=== PATIENT | female | born 1990 | race Caucasian/White ===

== ENCOUNTER 2016-05-23 20:31 | Emergency (ER) | payer OTHER ==
[2016-05-23 20:42] VITALS: BP 141/60; PULSE 80; RESP 20; TEMP 97.3
[2016-05-23] MEDS ORDERED: DIPH,PERTUS(ACELL)TETVAC-LF 0.5 ML VIAL IM ONE (20:48)
--- NOTE | 2016-05-23 20:51 | ED ---
General Adult HPI - General Chief complaint: Wound/Laceration Stated complaint: thumb lac-[facility] Time Seen by Provider: 05/23/16 20:42 Source: patient, RN notes reviewed Mode of arrival: ambulatory Limitations: no limitations - History of Present Illness Initial comments: This is a 25 year old female presents laceration to the left thumb that happened around noon today. 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 Patient is unsure when her last tetanus was. Patient denies any recent fever, chills, shortness breath, chest pain, abdominal pain, nausea/vomiting/diarrhea, back pain, numbness, tingling, hematuria, headache, or visual changes, or any other complaints. - Related Data Previous Rx's Medication Instructions Recorded Cephalexin [Keflex] 500 mg PO Q12HR 5 Days 05/23/16 Allergies Allergy/AdvReac Type Severity Reaction Status Date / Time No Known Allergies Allergy Verified 05/23/16 20:42 Review of Systems ROS Statement: Those systems with pertinent positive or pertinent negative responses have been documented in the HPI. ROS Other: All systems not noted in ROS Statement are negative. Past Medical History Additional Past Medical History / Comment(s): narcolepsy, pcos History of Any Multi-Drug Resistant Organisms: None Reported Past Surgical History: Section, Orthopedic Surgery Past Psychological History: No Psychological Hx Reported Smoking Status: Current every day smoker Past Alcohol Use History: Rare Past Drug Use History: None Reported General Exam - General Exam Comments Initial Comments: General: The patient is awake and alert, in no distress, and does not appear acutely ill. Neck: The neck is supple, there is no tenderness or JVD. Cardiovascular: There is a regular rate and rhythm. No murmur, rub or gallop is appreciated. Respiratory: Lungs are clear to auscultation, respirations are non-labored, breath sounds are equal. No wheezes, stridor, rales, or rhonchi. Musculoskeletal: Full range of motion, strength 5/5 and Sensation intact. Radial pulses 2+ bilaterally. Capillary refill is normal at less than 2 seconds. Neurological: A&O x 3. CN II-XII intact, There are no obvious motor or sensory deficits. Coordination appears grossly intact. Speech is normal. Skin: There is an approximately 0.5cm superficial laceration to the distal left thumb. Skin is warm and dry and no rashes or lesions are noted. Psychiatric: Normal mood and affect. Limitations: no limitations Course Vital Signs 05/23/16 20:40 Temperature 97.3 F L Pulse Rate 80 Respiratory 20 Rate Blood Pressure 141/60 O2 Sat by Pulse 100 Oximetry Medical Decision Making - Medical Decision Making This is a 25-year-old female presents with a superficial laceration to the left thumb that happened around noon. On physical exam There is an approximately 0.5cm superficial laceration to the distal left thumb. I cleansed the wound with normal saline. No foreign bodies noted in the wound. Steri-Strips were applied to the wound and wound was covered. Patient was given a tetanus shot in the EC today. I discussed Neosporin and keep the area clean and dry. Patient will be put on a short course of Keflex. I discussed return parameters and signs of infection.Discussed that patient should follow up with PCP in one to 2 days or return to the [facility] for any worsening symptoms or for any further concerns. Patient was receptive to this plan and patient will be discharged home. Disposition Clinical Impression: Superficial laceration of hand Disposition: HOME SELF-CARE Condition: Good Instructions: Laceration (ED) Additional Instructions: Keep the area clean and dry. May apply topical Neosporin to the area. Please keep the wound covered at work. Please follow-up with family doctor in the next 2 days of symptoms have not improved. Please return to emergency room if the symptoms increase or worsen or for any other concerns. Prescriptions: Cephalexin [Keflex] 500 mg PO Q12HR 5 Days Referrals: Meredith Barnhart MD [Primary Care Provider] - 1-2 days Time of Disposition: 21:08
== END 2016-05-23 21:30 | disposition home or self-care (01) ==
LOC: EC 20:31
DX: S61.012A Laceration without foreign body of left thumb without damage to nail, initial encounter (principal); W26.0XXA Contact with knife, initial encounter; Y93.G1 Activity, food preparation and clean up; Y92.511 Restaurant or cafe as the place of occurrence of the external cause; Y99.0 Civilian activity done for income or pay; Z23 Encounter for immunization
CPT/HCPCS: 90471; 90715; 99282

== ENCOUNTER → 2022-11-27 | Outpatient (CLI) | payer BC ==
[2022-11-27 14:13] VITALS: BP 122/87; PULSE 83; RESP 16; TEMP 98.4
--- NOTE | 2022-11-28 07:56 | P.PAINPG ---
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 Pt states pain level is provoked at 8/10 in intensity, constant, localized in the base of the head, achy in character w shooting pain towards top of the scalp. Pain is provoked by forward flexion. Pain is alleviated by PT x 8 wks in Jun 2022, massage therapy by her a licensed therapist, chiropractic treatments weekly x 2 yrs which she is currently in, heat, ice, meds (Baclofen, Advil, Tyl, Excedrin Migraine), topical, repositioning and rest. Oswestry axial pain score at 14. PMH: OA, Narcolepsy, PCOS PSH: Section, Orthopedic Surgery SH: Daily tobacco use, Rare ETOH use, No illicit drug use FH: Non contributory All: See list Meds: See list REVIEW OF ORGAN SYSTEMS: CONSTITUTIONAL: No fevers or chills. No recent weight loss. NEUROLOGICAL: + numbness and tingling along the distal extremities. No seizure disorders or headaches. MUSCULOSKELETAL: + pain PSYCHIATRIC: Denies current depression or suicidal thoughts. Physical Examinations : Constitutional : Cooperative , not in acute distress . Neurologic : Cranial nerve II to XII intact. No focal neurological deficits. Psychiatric : alert & oriented x 3. Matching mood & appropriate affect. Judgment & insight intact. Musculoskeletal : Cervical Spine BL JOSE G TTP Motor strength in the deltoid and biceps: Normal right side. Normal Left side Motor strength biceps and the wrist extensors: Normal right side . Normal left side Motor strength in the triceps muscle: Normal right side. Normal left side Deep tendon reflexes: Normal at the biceps. Normal at Brachioradialis. Normal at triceps Vertebral body tenderness to deep palpation over Cervical facet loading test: positive bilaterally Spurling test: positive bilaterally Neck distraction test: positive bilaterally Gene sign: positive bilaterally Lumbar spine Motor strength lower extremities ,thigh and legs 5/5 Right side , 5/5 Left side Deep tendon reflexes : Normal Knee Jerk. Normal Ankle Jerk Vertebral body tenderness over Darling Test positive Lumbar facet Loading Test: positive Right / positive Left Range of motion of the lumbar spine Flexion 30 degrees, extension 10 degrees Straight Leg Raise test: Left/ Right positive at degree Damon test: positive right / positive left. Severe tenderness over the Sacroiliac joint on the Right / Left sides Gaenslen test: positive bilaterally Seated flexion test: positive bilaterally. Sacral spine : Severe tenderness over the Sacroiliac joint: right side / left side Range of motion: Flexion of the lumbar spine <60 degrees Range of motion: Extension of the lumbar spine <20 degrees Gaenslen's Test positive Joel's Test positive Damon test: positive right side / left side Thigh Thrust Test Sacral Thrust Test Imaging: MRI noncontrast of the cervical spine from 10/18/22 reviewed Assessment/ Plan : Occipital Neuralgia, Cervicogenic GREENE Recommendation of BL JOSE G injections. May need a series for optimal pain relief. Risks, benefits of procedure discussed and patient verbalized understanding. Admits to aspirin or anti- coagulant use or medical history of diabetes. Protocol for discontinuation/ continuation of medications dima procedure discussed. Minimal anesthesia provided, if clinically indicated, consisting of Versed and Fentanyl. All questions answered. I have spent greater than 30 minutes on patient care today. Dr Alvarez was available by phone for the evaluation of this patient. The time was used to review the medical records including relevant urine studies and Prescription history (MAPs), review of the available imaging, evaluation and examination of the patient, coordination of care with the medical staff and if applicable referring physicians, as well as creation of the medical record PQRS Narrative: Smoking Status Current every day smoker Home Medications: Ambulatory Orders Cephalexin [Keflex] 500 mg PO Q12HR 5 Days cap 05/23/16 Controlled Substance Measures - Controlled Substance Measures Is patient prescribed a controlled substance at discharge?: No
== END ==
LOC: PNWHC3 13:29
PROVIDERS: ATTEND Specialist
DX: G43.109 Migraine with aura, not intractable, without status migrainosus (principal); M54.81 Occipital neuralgia; M19.90 Unspecified osteoarthritis, unspecified site; G47.419 Narcolepsy without cataplexy; F17.200 Nicotine dependence, unspecified, uncomplicated
CPT/HCPCS: 99211

== ENCOUNTER → 2023-01-17 | Outpatient (CLI) | payer BC ==
--- NOTE | 2023-02-03 11:27 | EM ---
EVENT MONITOR The patient was monitored between January 17, 2023 and January 30, 2023. The rhythm strip revealed a sinus mechanism. Episode of sinus tachycardia was noted. No atrial fibrillation was noted. No pauses were noted. No diary was available. MMODL / IJN: [id number] /
== END | disposition home or self-care (01) ==
LOC: RADECHMAIN 07:47
PROVIDERS: ATTEND Family Medicine
DX: R00.0 Tachycardia, unspecified (principal); R00.2 Palpitations
CPT/HCPCS: 93270

== ENCOUNTER → 2023-01-20 | Outpatient (CLI) | payer BC ==
--- NOTE | 2023-01-20 14:36 | P.PAINPG ---
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 Pt states she experienced 90% pain relief x 3 wks s/p procedure. Pt states pain level is provoked at 6/10 in intensity, constant, localized in the R base of the head, achy in character w shooting pain towards top of the R scalp. Pain is provoked by forward flexion. Pain is alleviated by PT x 8 wks in Jun 2022, massage therapy by her a licensed therapist, chiropractic treatments weekly x 2 yrs which she is currently in, heat, ice, meds, topical, repositioning and rest. Oswestry axial pain score at 22. Interventional procedures include BL JOSE G injections x1 Medications include Baclofen, Advil, Tyl, Excedrin Migraine REVIEW OF ORGAN SYSTEMS: CONSTITUTIONAL: No fevers or chills. No recent weight loss. NEUROLOGICAL: + numbness and tingling along the distal extremities. No seizure disorders or headaches. MUSCULOSKELETAL: + pain PSYCHIATRIC: Denies current depression or suicidal thoughts. Physical Examinations : Constitutional : Cooperative , not in acute distress . Neurologic : Cranial nerve II to XII intact. No focal neur ological deficits. Psychiatric : alert & oriented x 3. Matching mood & appropriate affect. Judgment & insight intact. Musculoskeletal : Cervical Spine R JOSE G TTP Motor strength in the deltoid and biceps: Normal right side. Normal Left side Motor strength biceps and the wrist extensors: Normal right side . Normal left side Motor strength in the triceps muscle: Normal right side. Normal left side Deep tendon reflexes: Normal at the biceps. Normal at Brachioradialis. Normal at triceps Vertebral body tenderness to deep palpation over Cervical facet loading test: positive bilaterally Spurling test: positive bilaterally Neck distraction test: positive bilaterally Gene sign: positive bilaterally Lumbar spine Motor strength lower extremities ,thigh and legs 5/5 Right side , 5/5 Left side Deep tendon reflexes : Normal Knee Jerk. Normal Ankle Jerk Vertebral body tenderness over Darling Test positive Lumbar facet Loading Test: positive Right / positive Left Range of motion of the lumbar spine Flexion 30 degrees, extension 10 degrees Straight Leg Raise test: Left/ Right positive at degree Damon test: positive right / positive left. Severe tenderness over the Sacroiliac joint on the Right / Left sides Gaenslen test: positive bilaterally Seated flexion test: positive bilaterally. Sacral spine : Severe tenderness over the Sacroiliac joint: right side / left side Range of motion: Flexion of the lumbar spine <60 degrees Range of motion: Extension of the lumbar spine <20 degrees Gaenslen's Test positive Joel's Test positive Damon test: positive right side / left side Thigh Thrust Test Sacral Thrust Test Imaging: MRI noncontrast of the cervical spine from 10/18/22 reviewed Assessment/ Plan : Occipital Neuralgia, Cervicogenic GREENE Recommendation of R JOSE G injection. May need a series for optimal pain relief. Risks, benefits of procedure discussed and patient verbalized understanding. Admits to aspirin or anti- coagulant use or medical history of diabetes. Protocol for discontinuation/ continuation of medications dima procedure discussed. Minimal anesthesia provided, if clinically indicated, consisting of Versed and Fentanyl. All questions answered. I have spent greater than 30 minutes on patient care today. Dr Alvarez was available by phone for the evaluation of this patient. The time was used to review the medical records including relevant urine studies and Prescription history (MAPs), review of the available imaging, evaluation and examination of the patient, coordination of care with the medical staff and if applicable referring physicians, as well as creation of the medical record PQRS Narrative: Smoking Status Current every day smoker Hx Alcohol Use (MH) Yes: SOCIAL Home Medications: Ambulatory Orders Aspirin/Acetaminophen/Caffeine [Excedrin Migraine Caplet] 1 each PO DIRECTED PRN 12/18/22 Baclofen 10 mg PO HS 12/18/22 Dextroamphetamine/Amphetamine [Dextroamp-Amphetamin 20 mg Tab] 20 mg PO BID 12/18/22 Ibuprofen 800 mg PO Q8H PRN 12/18/22 Klonopin (Unknown Dose) 1 tab PO DIRECTED PRN 12/18/22 L.acidoph,Paracasei, B.lactis [Probiotic] 1 each PO DAILY 12/18/22 Multivitamins, Thera [Multivitamin (formulary)] 1 tab PO DAILY 12/18/22 Niacin (Unknown Dose) 1 tab PO DAILY 12/18/22 Vienva-28 1 tab PO DAILY 12/18/22 Vitamin C/Biotin [Hair, Skin and Nails Chew] 1 tab PO DAILY 12/18/22 valACYclovir HCL [Valtrex] 500 mg PO DAILY 12/18/22 Controlled Substance Measures - Controlled Substance Measures Is patient prescribed a controlled substance at discharge?: No
[2023-01-20 15:00] VITALS: BP 127/73; PULSE 80; RESP 116
== END ==
LOC: PNWHC3 14:19
PROVIDERS: ATTEND Specialist
DX: M54.81 Occipital neuralgia (principal); G44.86 Cervicogenic headache; F17.200 Nicotine dependence, unspecified, uncomplicated; Z79.82 Long term (current) use of aspirin
CPT/HCPCS: 99211

== ENCOUNTER → 2023-09-15 | Outpatient (CLI) | payer BC ==
[2023-09-15 14:34] LABS: HCT 43.7 % (37.2-46.3); HGB 14.4 g/dL (12.0-15.0); MCH 29.5 pg (27.0-32.0); MCV 89.5 FL (80.0-97.0); Mean Platelet Volume 11.9 FL (9.5-12.2); NRBC Per 100 WBC 0 X 10*3/uL (0.00-0.01); Platelet Count 248 X 10*3/uL (140-440); RBC 4.88 X 10*6/uL (4.10-5.20); RDW 12.2 % (11.5-14.5); WBC 6.23 X 10*3/uL (4.50-10.00)
[2023-09-15 14:43] LABS: Blood Urea Nitrogen 8.3 mg/dL (9.0-27.0); Carbon Dioxide 23.9 mmol/L (21.6-31.8); Chloride 106 mmol/L (96-109); Sodium 142 mmol/L (135-145)
== END | disposition home or self-care (01) ==
LOC: LABPAT 09:30
PROVIDERS: ATTEND Internal Medicine Clinical Cardiac Electrophysiology
DX: Z01.812 Encounter for preprocedural laboratory examination (principal); I47.10 Supraventricular tachycardia, unspecified
CPT/HCPCS: 80051; 82565; 84520; 85027

== ENCOUNTER 2023-09-22 09:38 | Day surgery (SDC) | payer BC ==
[2023-09-18 10:45] VITALS: BMI 39.4
[~2023-09-22 09:38] MED LIST: LIDOCAINE 1% (10MG/ML) FOR IV START INTRADERMA PRN; ONDANSETRON 4 MG/2 ML VIAL IVP PRN; fentaNYL (PF) 50 MCG/ML 2 ML AMP IV PRN
[2023-09-22] MEDS: SODIUM CHLORIDE 0.9% 1,000 ML IV SCH (09:57)
[2023-09-22] MEDS ORDERED: diphenhydrAMINE 50 MG/ML 1 ML VIAL ONE (11:01)
[2023-09-22] MEDS ORDERED: PROPOFOL 10 MG/ML 20 ML VIAL IV ONE (11:01)
[2023-09-22] MEDS ORDERED: MIDAZOLAM 2 MG/2 ML VIAL ONE (11:01)
[2023-09-22] MEDS ORDERED: ISOPROTERENOL 250 MCG/1.25 ML SYR IV ONE (11:01)
[2023-09-22] MEDS ORDERED: fentaNYL (PF) 50 MCG/ML 2 ML AMP ONE (11:01)
[2023-09-22 11:04] LABS: ALT 26 U/L (4-34); AST 33 U/L (14-36); African American GFR (CKD) >90 (>60 ml/min/1.73 sqM); Albumin 3.8 g/dL (3.5-5.0); Alkaline Phosphatase 62 U/L (38-126); Anion Gap 3 mmol/L; Blood Urea Nitrogen 7 mg/dL (7-17); Calcium 9.1 mg/dL (8.4-10.2); Carbon Dioxide 24 mmol/L (22-30); Chloride 112 mmol/L (98-107); Glucose 95 mg/dL (74-99); Non-African American GFR(CKD) >90 (>60 ml/min/1.73 sqM); Potassium 4.4 mmol/L (3.5-5.1); Sodium 139 mmol/L (137-145); Total Bilirubin 0.6 mg/dL (0.2-1.3); Total Protein 6.4 g/dL (6.3-8.2)
[2023-09-22] MEDS ORDERED: LIDOCAINE 1% INJ 10MG/ML (20 ML MDV) ONE ×2 (11:16→11:51)
[2023-09-22] MEDS: LIDOCAINE 1% INJ 10MG/ML (20 ML MDV) SQ ONE ×2 (11:48→11:55)
[2023-09-22] MEDS: HEPARIN SODIUM (1,000 UNIT/ML) 1,000 UNIT in SODIUM CHLORIDE 0.9% 1,000 ML IRRIGATION ONE (12:40)
[2023-09-22] MEDS ORDERED: ACETAMINOPHEN TAB 325 MG TAB PO PRN (14:25)
--- NOTE | 2023-09-22 14:32 | P.EPPROC ---
- EP Procedure Note Electrophysiology Procedure Note: Final result Diagnostic EP study revealed AV ruthann reentry as the mechanism of the tachycardia Antegrade slow pathway conduction evident with straight pacing as well as with atrial extra stimulation Ruthann response to Para-Hisian pacing Successful mapping and ablation of the slow pathway with appearance of junctional rhythm during RF lesions. RF applications just outside and anterior to the coronary sinus floor AV ruthann reentry was rendered noninducible No residual slow pathway at the end of the procedure Details Patient was brought to the EP lab in a fasting state. Written informed consent was obtained prior to the procedure. The right and left groins were prepped per protocol and venous sheaths were placed. Diagnostic catheters placed in the high right atrium, His bundle area, right ventricle and coronary sinus. A full diagnostic EP study was performed on and off Isopril. SVT was induced, AV ruthann reentry was confirmed. A long sheath along with an RF ablation catheter was used to map the slow pathway and tagged the coronary sinus as well as the HIS cloud. RF ablation was applied. Junctional rhythm was obtained. Repeat EP study on and off Isopril confirmed noninducibility of AV ruthann reentry and successful ablation. All catheters were then removed. Closure device used for each access site. Patient was transferred back to telemetry. Patient tolerated procedure well without any acute complications Baseline measurements: Sinus cycle length 879 ms, WA interval 146 ms, QRS 99 ms and QT interval 406 ms AH interval 65 ms and HV interval 50 ms When SVT was induced tachycardia cycle length was 446 ms Sinus node recovery times at 600, 500 and 400 ms were 1410, 1440 and 1226 ms AV node Wenckebach block 420 ms, no delta waves Slow pathway conduction evident at 480 ms Para-Hisian pacing demonstrated a ruthann response VA Wenckebach block 440 ms Atrial and ventricular extra stimulation performed from multiple sites including high right atrium, coronary sinus and right ventricle Relevant parameters on Isopril: AV node Wenckebach block improved to 270 ms. VA Wenckebach block at 300 ms. With atrial extra stimulation, AV ruthann reentry induced SVT induced with atrial extra stimulation. Short septal times of less than 60 ms. Short episodes of SVT that would terminate spontaneously SVT consistent with AV ruthann reentry, with onset with a long AH interval, AH jump Following ablation, WA interval is normal AV node Wenckebach block 410 ms VA Wenckebach block 320 ms Residual slow pathway conduction: None Atrial and ventricular extra stimulation performed. No inducible SVT with double extrastimuli from the high right atrium and from the coronary sinus and right ventricle No inducible SVT
--- NOTE | 2023-09-22 14:40 | P.PRLE ---
RE: Niharika Multani Dear Dr. Melvin Bundy underwent a diagnostic EP study which revealed AV padmini reentry She underwent successful mapping and ablation of the slow pathway for the treatment of AV padmini reentry The tachycardia is rendered noninducible. No acute complications noted She will continue to follow-up with you and does not need any cardiac medications at this point Thank you for entrusting me with the care of the patient Warm regards Sincerely Jorge Macias
[2023-09-22] MEDS: DEXAMETHASONE SOD PHOSPHATE 4 MG/ML 1 ML VIAL IV ONE (14:51)
[2023-09-22] MEDS: LACTATED RINGERS 1,000 ML IV SCH (14:51)
[2023-09-22] MEDS: ACETAMINOPHEN IV (For NPO) 1,000 MG in EMPTY BAG 1 BAG IVPB ONE (14:55)
[2023-09-22] MEDS: BACLOFEN 10 MG TAB PO SCH (20:23)
[2023-09-22] MEDS: ESCITALOPRAM 10 MG TAB PO SCH (21:00)
[2023-09-23 07:38] VITALS: BP 112/72; PULSE 88; RESP 16; TEMP 98
--- NOTE | 2023-09-23 07:52 | P.DS ---
Providers Attending physician: Jorge Macias Primary care physician: [facility] Course: Patient is doing well from a cardiac standpoint. She denies any chest discomfort dizziness lightheadedness or palpitations She has mild tenderness in the left groin but no hematoma No hematoma in the right groin On examination blood pressure 112 over 72 mm of artery pulse rate is in the 80s Heart sounds are normal breath sounds are clear Abdomen soft Impression AV padmini reentrant tachycardia, recurrent and symptomatic Status post diagnostic EP study mapping of the slow pathway and successful ablation Tachycardia rendered noninducible Increased BMI of 39.5 Plan Lifestyle modification gradual weight loss avoidance of marijuana Increased risk of atrial arrhythmias with marijuana use discussed with the patient Plan - Discharge Summary Discharge Rx Participant: No New Discharge Prescriptions: No Action Vienva-28 1 tab PO DAILY Vitamin C/Biotin [Hair, Skin and Nails Chew] 1 tab PO DAILY Escitalopram [Lexapro] 10 mg PO DAILY valACYclovir HCL [Valtrex] 500 mg PO DAILY RX: Baclofen 10 mg PO HS Multivitamins, Thera [Multivitamin (formulary)] 1 tab PO DAILY modafiniL [Provigil] 200 mg PO BID Discharge Medication List Multivitamins, Thera [Multivitamin (formulary)] 1 tab PO DAILY 12/18/22 [History] RX: Baclofen 10 mg PO HS 12/18/22 [History] Vienva-28 1 tab PO DAILY 12/18/22 [History] Vitamin C/Biotin [Hair, Skin and Nails Chew] 1 tab PO DAILY 12/18/22 [History] valACYclovir HCL [Valtrex] 500 mg PO DAILY 12/18/22 [History] Escitalopram [Lexapro] 10 mg PO DAILY 09/18/23 [History] modafiniL [Provigil] 200 mg PO BID 09/18/23 [History]
[2023-09-23] MEDS ORDERED: ESCITALOPRAM 10 MG TAB PO SCH (09:00)
== END 2023-09-23 11:07 | disposition home or self-care (01) ==
LOC: CATHEP 09:38 → 6NMEDSUR 13:53 → CATHEP 09-23 11:07
PROVIDERS: ATTEND Internal Medicine Clinical Cardiac Electrophysiology
DX: I47.19 Other supraventricular tachycardia (principal); Z79.899 Other long term (current) drug therapy
CPT/HCPCS: 93005; 93623; 93653; 86900; 86901; 80053; 86850; 81025; C1894; C1769; C1760; C1766; C1730 ×3; C1732; J2250; J1200; J2001; J3010; J1644; J0131; J2704